=== PATIENT | male | born 1945 | race Caucasian/White ===

== ENCOUNTER → 2019-11-23 09:07 | Outpatient (BNVA) | payer MEDICARE, SELFPAY | PROVIDERS: Family Provider Internal Medicine; PCP Internal Medicine; Visit Provider Specialist | DX: G24.3 Spasmodic torticollis (principal); Z87.891 Personal history of nicotine dependence | CPT/HCPCS: 64616; 99212; J0585 ==

== ENCOUNTER 2019-12-29 16:07 | Emergency (ER) | payer MEDICARE, SELFPAY ==
[2019-12-29 16:08] VITALS: BMI 25.2
[2019-12-29 16:11] VITALS: BP 131/67; PULSE 70; RESP 18; TEMP 38.1; O2SAT 95
--- NOTE | 2019-12-29 16:24 | XR_ITS ---
WS: [id number] XR chest 1V portable [id number] REASON FOR EXAM: dyspnea/cough FINDINGS: The lung felix are adequately aerated without. Coronary artery stent is again seen. The heart mediastinum are normal. Normal vascularity throughout both lung felix is seen. The hilum and apices are normal. XR/XR chest 1V portable [id number] IMPRESSION: No acute findings.
--- NOTE | 2019-12-29 16:33 | ED_ITS ---
Entered by Inés Valerio, acting as scribe for Oziel Perez DO HPI - Weakness General: Chief complaint: Weakness Stated complaint: DOES NOT FEEL WELL Time Seen by Provider: 12/29/19 16:20 History of Present Illness: HPI Narrative: 74yo male presents to the ER saying he just feels bad . He has pain from arthritis but has no real complaints at this time other than he just does not feel well. Denies abdominal pain denies chest pain denies difficulty breathing no difficulty with bowel or bladder. He does have chronic neck pain which seems to be a little worse. He has a low- grade fever. And a slight cough. MD Complaint: generalized weakness Onset (ago): day(s) Duration: constant Location: generalized Severity: moderate Relieving factors: none Exacerbating factors: none Associated symptoms: Denies chest pain, chills, confusion, dark stools, dysuria, easy bruising, fever(s), headache(s), nausea, syncope or vomiting Review of Systems Const: Denies: fever or chills Eyes: Denies: change in vision or blurry vision ENMT: Denies: throat pain, oral sores/lesions, dental pain, nasal discharge or nasal congestion Card: Denies: chest pain or syncope Resp: Denies: shortness of breath, productive cough, non-productive cough or wheezing GI: Denies: nausea, vomiting or black tarry stool : Denies: painful urination Musc: Denies: neck pain, back pain, extremity pain, extremity swelling, joint pain or joint swelling Skin/Breast: Denies: rash, itching or redness Neuro: Denies: headache or confusion Psych: Denies: anxiety, depression, loss of interest, visual hallucinations, auditory hallucinations, suicidal ideation or homicidal ideation Endo: Denies: excessive urination, excessive thirst, tired all the time or cold intolerance Dheeraj/Lymph: Denies: easy bruising PFSH ED PFSH: Social History (Updated 11/23/19 @ 10:30 by Cassidy Green LPN) Smoking and tobacco status: former smoker Physical Exam Const: COMMON NORMALS: no apparent distress GENERAL APPEARANCE: cooperative and comfortable ORIENTATION/CONSCIOUSNESS: Yes awake, Yes oriented to person, Yes oriented to place and Yes oriented to time HENMT: COMMON NORMALS: normocephalic, head/scalp atraumatic, hearing grossly normal bilaterally, external ears normal, EAC's normal, TM's normal bilaterally, nasal mucous membranes and turbinates normal, moist oral mucous membranes and oropharynx normal HEAD & SCALP: normocephalic and atraumatic NOSE: nasal mucous membranes and turbinates normal EXTERNAL EAR: Yes external ears normal EXTERNAL AUDITORY CANAL: EAC's normal TYMPANIC MEMBRANE: TM's normal bilaterally Eye: COMMON NORMALS: PERRL, EOMs intact bilaterally, conjunctivae normal and no scleral icterus CONJUNCTIVA: Yes conjunctivae normal PUPIL: Yes PERRL Neck/C-Spine: COMMON NORMALS: full ROM, no lymphadenopathy, supple and no JVD Lymph: LYMPHATIC: no lymphadenopathy noted and no lymphedema noted Resp: COMMON NORMALS: normal respiratory effort, no retractions, no use of accessory muscles and clear to auscultation bilaterally AUSCULTATION: clear to auscultation bilaterally Cardio: COMMON NORMALS: no JVD, regular rate, regular rhythm and no murmurs RATE: regular rate RHYTHM: regular rhythm GI: COMMON NORMALS: soft to palpation and no hepatosplenomegaly AUSCULTATION: Yes normoactive bowel sounds PALPATION: Yes soft, No tender, No guarding and Yes no hepatosplenomegaly Extremity: COMMON NORMALS: normal to inspection, normal capillary refill, no clubbing, cyanosis or edema, no calf tenderness and no pedal edema Neuro: SENSORIUM/ORIENTATION: Yes oriented to person, Yes oriented to place and Yes oriented to time Skin: COMMON NORMALS: no rashes or lesions noted GENERAL SKIN EXAM: no rashes or lesions noted Course ED course: Patient is feeling much better his pain is improved no indication for admission at this time we will go ahead and discharge him home continue pain medication prescription given Vital Signs: Vital signs: Vital Signs Temperature 100.5 F H 12/29/19 16:11 Pulse Rate 72 12/29/19 19:10 Respiratory Rate 18 12/29/19 19:10 Blood Pressure 136/74 12/29/19 19:10 Pulse Oximetry 98 12/29/19 19:10 MDM - Weakness Lab Data: Labs: Lab Results 12/29/19 12/29/19 12/29/19 Range/Units 16:50 16:50 16:54 WBC 4.3 (4.0-10.0) 10^3/ uL RBC 4.57 (4.1-5.3) 10^6/u L Hgb 14.1 (11.7-16.6) g/dL Hct 43.8 (42.0-52.0) % MCV 95.8 H (80-94) fL MCH 30.9 (28.0-34.0) pg MCHC 32.2 (30.0-36.0) g/dL RDW 13.7 (12.1-15.1) % Plt Count 203 (130-400) 10^3/c mm MPV 10.6 H (7.4-10.4) fL Neut % (Auto) 79.2 % Lymph % (Auto) 7.6 % [place] % (Auto) 11.8 % Eos % (Auto) 0.7 % Baso % (Auto) 0.2 % Neut # (Auto) 3.4 (1.8-7.7) 10^3/u L Lymph # (Auto) 0.3 L (0.8-4.8) 10^3/u L [place] # (Auto) 0.5 (0.2-0.9) 10^3/u L Eos # (Auto) 0.0 (0.0-0.8) 10^3/u L Baso # (Auto) 0.0 (0.0-0.1) 10^3/u L Nucleated RBC % (a uto) 0 % Nucleated RBCs # 0.0 /100WBC Sodium 135 L (136-145) mmol/L Potassium 4.0 (3.5-5.1) mmol/L Chloride 96 L (98-107) mmol/L Carbon Dioxide 25 (22-29) mmol/L Anion Gap 18.0 (5-19) BUN 13 (8-23) mg/dL Creatinine 0.7 (0.7-1.2) mg/dL Glucose 95 (65-115) mg/dL Calcium 10.0 (8.5-10.5) mg/dL Total Bilirubin 0.5 (0.15-1.2) mg/dL AST 21 (0-40) U/L ALT 15 (0-41) U/L Alkaline Phosphata se 61 (40-130) IU/L Total Protein 8.0 (6.6-8.7) g/dL Albumin 4.1 (3.5-5.2) g/dL Globulin 3.9 (1.3-4.6) g/dL Urine Color Yellow (Yellow) Urine Appearance Clear (CLEAR) Urine pH 5 (5-7) Ur Specific Gravit y 1.020 (1.005-1.030) Urine Protein Neg (Negative) Urine Glucose (UA) Norm (Normal) Urine Ketones 1+ H (Negative) Urine Blood Neg (Negative) Urine Nitrate Negative (Negative) Urine Bilirubin Neg (NEGATIVE) Urine Urobilinogen Norm (Negative) mg/dL Ur Leukocyte Jayla ase Negative (Negative) Influenza Type A A g (Negative) POC Influenza B Ag (Negative) 12/29/19 Range/Units 17:53 WBC (4.0-10.0) 10^3/ uL RBC (4.1-5.3) 10^6/u L Hgb (11.7-16.6) g/dL Hct (42.0-52.0) % MCV (80-94) fL MCH (28.0-34.0) pg MCHC (30.0-36.0) g/dL RDW (12.1-15.1) % Plt Count (130-400) 10^3/c mm MPV (7.4-10.4) fL Neut % (Auto) % Lymph % (Auto) % [place] % (Auto) % Eos % (Auto) % Baso % (Auto) % Neut # (Auto) (1.8-7.7) 10^3/u L Lymph # (Auto) (0.8-4.8) 10^3/u L [place] # (Auto) (0.2-0.9) 10^3/u L Eos # (Auto) (0.0-0.8) 10^3/u L Baso # (Auto) (0.0-0.1) 10^3/u L Nucleated RBC % (a uto) % Nucleated RBCs # /100WBC Sodium (136-145) mmol/L Potassium (3.5-5.1) mmol/L Chloride (98-107) mmol/L Carbon Dioxide (22-29) mmol/L Anion Gap (5-19) BUN (8-23) mg/dL Creatinine (0.7-1.2) mg/dL Glucose (65-115) mg/dL Calcium (8.5-10.5) mg/dL Total Bilirubin (0.15-1.2) mg/dL AST (0-40) U/L ALT (0-41) U/L Alkaline Phosphata se (40-130) IU/L Total Protein (6.6-8.7) g/dL Albumin (3.5-5.2) g/dL Globulin (1.3-4.6) g/dL Urine Color (Yellow) Urine Appearance (CLEAR) Urine pH (5-7) Ur Specific Gravit y (1.005-1.030) Urine Protein (Negative) Urine Glucose (UA) (Normal) Urine Ketones (Negative) Urine Blood (Negative) Urine Nitrate (Negative) Urine Bilirubin (NEGATIVE) Urine Urobilinogen (Negative) mg/dL Ur Leukocyte Jayla ase (Negative) Influenza Type A A g Negative (Negative) POC Influenza B Ag Negative (Negative) Discharge Plan Discharge Patient Disposition: Home, Self-Care Clinical Impression: Cervical dystonia, Upper respiratory infection, viral Condition: Stable Prescriptions: New [place] 5-325 mg tablet 1 tab PO Q6H PRN (Reason: pain) Qty: 15 RF: 0 Zofran 4 mg tablet 4 mg PO Q6H PRN (Reason: nausea and vomiting) Qty: 10 RF: 0 No Action atorvastatin 40 mg tablet 40 mg PO .HS RF: 0 levothyroxine [Synthroid] 88 mcg tablet 88 mcg PO DAILY RF: 0 metoprolol succinate 25 mg capsule,sprinkle,ER 24hr 25 mg PO DAILY RF: 0 Discharge Orders: Discharge Order (Routine); Ordered 12/29/19 Ordered By: Oziel Perez Referrals: Avril Bonilla MD [Primary Care Provider] - Discharge Diet: Usual diet Discharge Activity: Increase activity as tolerated Activity Restrictions/Additional Instructions: Pain and nausea medications as needed. If fever worsens or changes return to the emergency room. All of your labs and chest x-ray done here in the emergency room tonight were normal Discharge Date/Time: 12/29/19 19:13 Coding Level of Care Code ED Orbitread Operator for Chg Fwd Exam Comprehensive The documentation recorded by the Teodoro crawford Bailey Leadawn, accurately reflects the service I personally performed and the decisions made by Ana díaz Curtis L, DO Dec 29, 2019 16:07
[2019-12-29] MEDS: sodium chloride 0.9% 500 ML 999 ML IV (17:01)
[2019-12-29] MEDS: ondansetron 2 mg/ML SDV 2 mL 4 MG IVP (17:02)
[2019-12-29 17:16] LABS: Basophils % 0.2 %; Eosinophils % 0.7 %; Hematocrit 43.8 % (42.0-52.0); Hemoglobin 14.1 g/dL (11.7-16.6); Lymphocytes # 0.3 10^3/uL (0.8-4.8); Lymphocytes % 7.6 %; Mean Corpuscular HGB Conc 32.2 g/dL (30.0-36.0); Mean Corpuscular Hemoglobin 30.9 pg (28.0-34.0); Mean Corpuscular Volume 95.8 fL (80-94); Mean Platelet Volume 10.6 fL (7.4-10.4); Monocytes # 0.5 10^3/uL (0.2-0.9); Monocytes % 11.8 %; Neutrophils # 3.4 10^3/uL (1.8-7.7); Neutrophils % 79.2 %; Nucleated Red Blood Cells % 0 %; Platelet Count 203 10^3/cmm (130-400); Red Blood Count 4.57 10^6/uL (4.1-5.3); Red Cell Distribution Width 13.7 % (12.1-15.1); White Blood Count 4.3 10^3/uL (4.0-10.0)
[2019-12-29 17:19] LABS: Add Urine Microscopic? NO
[2019-12-29 17:23] LABS: Glucose Urine UA Norm (Normal); Protein Urine Neg (Negative); Urine Appearance Clear (CLEAR); Urine Color Yellow (Yellow); pH Urine 5 (5-7)
[2019-12-29 17:24] LABS: Bilirubin Urine Neg (NEGATIVE); Blood Urine Neg (Negative); Ketones Urine 1+ (Negative); Leukocyte Esterase Urine Negative (Negative); Nitrate Urine Negative (Negative); Urobilinogen Urine Norm (Negative)
[2019-12-29 17:35] LABS: Alanine Aminotransferase 15 U/L (0-41); Albumin Level 4.1 g/dL (3.5-5.2); Alkaline Phosphatase 61 IU/L (40-130); Aspartate Amino Transferase 21 U/L (0-40); Blood Urea Nitrogen 13 mg/dL (8-23); Carbon Dioxide 25 mmol/L (22-29); Chloride 96 mmol/L (98-107); Creatinine Clr Calc Pharmacy 75.1382; Globulin 3.9 g/dL (1.3-4.6); Glucose 95 mg/dL (65-115); Sodium 135 mmol/L (136-145); Total Bilirubin 0.5 mg/dL (0.15-1.2)
[2019-12-29 18:34] LABS: Influenza A by IFA Negative (Negative); Influenza B by IFA Negative (Negative)
[2019-12-29 19:10] VITALS: BP 136/74; PULSE 72; RESP 18; O2SAT 98
== END 2019-12-29 19:13 | disposition home or self-care (01) ==
PROVIDERS: Emergency Provider Family Medicine; Family Provider Internal Medicine; PCP Internal Medicine
DX: J06.9 Acute upper respiratory infection, unspecified (principal); G24.3 Spasmodic torticollis; Z87.891 Personal history of nicotine dependence
CPT/HCPCS: 71045; 80053; 81003; 85025; 87804; 96374; 96375; 99282; 99283; A9270; J2405; J7040

== ENCOUNTER 2020-01-08 11:07 | Outpatient (CLI) | payer MEDICARE, SELFPAY ==
--- NOTE | 2020-01-08 11:18 | XR_ITS ---
WS: [id number] XR chest 2V* [id number] REASON FOR EXAM: COUGH/INFLUENZA FINDINGS: Comparison made to December 29, 2019 The heart is not enlarged. The lung felix are again seen well-aerated with no infiltrates, pneumonia, pleural effusion, or mass effect. The hilum and apices are normal. XR/XR chest 2V* [id number] IMPRESSION: No acute cardiopulmonary changes.
--- NOTE | 2020-01-08 11:18 | XR_ITS ---
WS: [id number] XR hand RT min 3V* [id number] REASON FOR EXAM: PAIN IN R HAND FINDINGS: Degenerative arthritis of the distal interphalangeal joints. A cyst in the scaphoid is seen. No fractures or other dyscrasias. XR/XR hand RT min 3V* [id number] IMPRESSION: Degenerative arthritis distal interphalangeal joints.
== END 2020-01-08 11:08 | disposition home or self-care (01) ==
LOC: RAD 11:14
PROVIDERS: Family Provider Internal Medicine; PCP Internal Medicine; Visit Provider Internal Medicine
DX: J11.1 Influenza due to unidentified influenza virus with other respiratory manifestations (principal); R05 Cough; M79.641 Pain in right hand; M19.041 Primary osteoarthritis, right hand
CPT/HCPCS: 71046; 73130

== ENCOUNTER → 2020-02-29 08:39 | Outpatient (BNVA) | payer MEDICARE, SELFPAY | PROVIDERS: Family Provider Internal Medicine; PCP Internal Medicine; Visit Provider Specialist | DX: G24.3 Spasmodic torticollis (principal); Z79.891 Long term (current) use of opiate analgesic | CPT/HCPCS: 64616; 64642; J0585 ==

== ENCOUNTER 2020-04-08 20:00 | Outpatient (CLI) | payer MEDICARE, SELFPAY | END 2020-04-08 20:01 | disposition home or self-care (01) | LOC: SLEEP 04-09 08:39 | PROVIDERS: Family Provider Internal Medicine; PCP Internal Medicine; Visit Provider Internal Medicine | DX: G47.33 Obstructive sleep apnea (adult) (pediatric) (principal) | CPT/HCPCS: 95811 ==

== ENCOUNTER → 2020-05-23 08:36 | Outpatient (BNVA) | payer MEDICARE, SELFPAY | PROVIDERS: Family Provider Internal Medicine; PCP Internal Medicine; Visit Provider Specialist | DX: G24.3 Spasmodic torticollis (principal) | CPT/HCPCS: 64616; 99212; J0585 ==

== ENCOUNTER → 2021-06-18 10:45 | Outpatient (BNVA) | payer MEDICARE, SELFPAY | PROVIDERS: Family Provider Internal Medicine; PCP Internal Medicine; Visit Provider Specialist | DX: M77.8 Other enthesopathies, not elsewhere classified (principal) | CPT/HCPCS: 73080 ==

== ENCOUNTER → 2021-07-16 10:54 | Outpatient (BNVA) | payer MEDICARE, SELFPAY | PROVIDERS: Family Provider Internal Medicine; PCP Internal Medicine; Visit Provider Specialist | DX: M25.551 Pain in right hip (principal); Z96.643 Presence of artificial hip joint, bilateral | CPT/HCPCS: 73502 ==

== ENCOUNTER → 2021-10-13 10:42 | Outpatient (BNVA) | payer MEDICARE, SELFPAY | PROVIDERS: Family Provider Internal Medicine; PCP Internal Medicine; Visit Provider Specialist | DX: Z47.1 Aftercare following joint replacement surgery (principal); Z96.643 Presence of artificial hip joint, bilateral | CPT/HCPCS: 73502 ==

== ENCOUNTER 2021-10-22 04:48 | Outpatient (RCR) | payer MEDICARE, SELFPAY | END 2021-11-07 23:59 | disposition home or self-care (01) | LOC: SPT 04:48 | PROVIDERS: PCP Internal Medicine; Referring Provider Specialist; Visit Provider Specialist | DX: Z96.642 Presence of left artificial hip joint (principal); M70.62 Trochanteric bursitis, left hip; Y93.9 Activity, unspecified | CPT/HCPCS: 97110; 97161 ==

== ENCOUNTER 2021-11-08 06:00 | Outpatient (RCR) | payer MEDICARE, SELFPAY | END 2021-12-08 23:59 | disposition home or self-care (01) | LOC: SPT 06:00 | PROVIDERS: PCP Internal Medicine; Referring Provider Specialist; Visit Provider Specialist | DX: Z47.1 Aftercare following joint replacement surgery (principal); Z96.642 Presence of left artificial hip joint | CPT/HCPCS: 97110 ==

== ENCOUNTER 2021-12-09 06:00 | Outpatient (RCR) | payer MEDICARE, SELFPAY | END 2021-12-26 23:59 | disposition home or self-care (01) | LOC: SPT 06:00 | PROVIDERS: PCP Internal Medicine; Referring Provider Specialist; Visit Provider Specialist | DX: Z47.1 Aftercare following joint replacement surgery (principal); Z96.642 Presence of left artificial hip joint | CPT/HCPCS: 97110 ==

== ENCOUNTER 2022-05-26 12:10 | Outpatient (CLI) | payer MEDICARE, SELFPAY ==
--- NOTE | 2022-05-26 12:28 | XR_ITS ---
WS: [id number] XR chest 2V* [id number] REASON FOR EXAM: CHRONIC COUGH FINDINGS: Moderate tortuosity of the thoracic aorta. The heart appears mildly enlarged which is a new finding c ompared to 01/08/2020. Partially calcified coronary artery stents are noted. There is calcified granulomatous disease bilaterally. No acute pulmonary parenchymal or pleural abnormality is identified. Moderately severe degenerative spondylosis and mild concave compression deformities are seen in the m id and lower thoracic spine. XR/XR chest 2V* [id number] IMPRESSION: Interval cardiac enlargement compared to the examination of 01/08/2020. No acute chest abnormality.
== END 2022-05-26 12:11 | disposition home or self-care (01) ==
PROVIDERS: PCP Internal Medicine; Visit Provider Internal Medicine
DX: I51.7 Cardiomegaly (principal); R05.3 Chronic cough
CPT/HCPCS: 71046

== ENCOUNTER → 2022-08-26 14:56 | Outpatient (BNVA) | payer MEDICARE, SELFPAY | PROVIDERS: PCP Internal Medicine; Visit Provider Nurse Practitioner Family | DX: M79.604 Pain in right leg (principal); M79.605 Pain in left leg; Z96.643 Presence of artificial hip joint, bilateral | CPT/HCPCS: 99214 ==

== ENCOUNTER 2023-09-22 11:18 | Emergency (ER) | payer OTHER, SELFPAY ==
[2023-09-22 11:27] VITALS: BP 177/77; PULSE 86; RESP 16; TEMP 36.5; O2SAT 97; BMI 26.9
[2023-09-22 11:35] VITALS: O2SAT 98
[2023-09-22 11:39] VITALS: BP 173/73; PULSE 88; RESP 18; O2SAT 96
--- NOTE | 2023-09-22 11:44 | CT_ITS ---
WS: [id number] CT pelvis TECHNIQUE: Noncontrast CT of the pelvis with coronal and sagittal reformatted images. CLINICAL INFORMATION: retained bergman catheter COMPARISON: None. DLP: 399.[address] scans at [facility] use at least one of these dose optimization techniques: automated e xposure control; mA and/or kV adjustment per patient size (includes targeted exams where dose is matc hed to clinical indication); or iterative reconstruction. FINDINGS: Bilateral THAs degrade images in the pelvis. Bergman catheter with tip in the bladder. Distal tip withi n the distal penile urethra approximately 2.1 cm from the meatus. No visualized air within the bladder. Bladder is relatively decompressed. No visualized hematoma. Sigmoid diverticulosis. Vascular calcification. IMPRESSION: 1. Bergman catheter with tip in the bladder and distal tip in the penile urethra approximately 2.1 cm from the meatus. 2. No visualized bladder or urethral hematoma. No air within the bladder. Bladder is decompressed. 3. Bilateral THAs. 4. Sigmoid diverticulosis. Notified Oziel Perez DO at 09/22/2023 12:49 PM.
--- NOTE | 2023-09-22 12:00 | PC.PHAR ---
[facility]ED [facility] 12 NOON 09/22/23
[2023-09-22 12:12] LABS: Basophils % 0.5 %; Eosinophils # 0.2 10^3/uL (0.0-0.8); Eosinophils % 2.9 %; Hematocrit 42.1 % (37-53); Lymphocytes # 0.9 10^3/uL (0.8-4.8); Lymphocytes % 14.2 %; Mean Corpuscular HGB Conc 32.3 g/dL (30-55); Mean Corpuscular Hemoglobin 32.7 pg (27-33); Mean Corpuscular Volume 101.2 fl (82-101); Monocytes # 0.5 10^3/uL (0.2-0.9); Monocytes % 7.3 %; Neutrophils # 4.84 10^3/uL (1.8-7.7); Neutrophils % 74.6 %; Nucleated Red Blood Cells % 0 %; Platelet Count 231 10^3/cmm (157-399); Red Blood Count 4.16 10^6/uL (3.85-5.65); Red Cell Distribution Width 13.3 % (12.1-15.1); White Blood Count 6.48 10^3/uL (3.29-11.43)
--- NOTE | 2023-09-22 12:20 | ED_ITS ---
HPI - Male Genitourinary General: Chief complaint: Urogenital-Male Stated complaint: cut tube off urine bag Time Seen by Provider: 09/22/23 11:44 Source: patient Mode of arrival: ambulatory History of Present Illness: 78-year-old male presents emergency room with Dumont catheter problem. Evidently couple weeks ago he had Dumont catheter placed because urinary retention he had some discomfort with it and it was leaking, so he tried to remove it he essentially pulled a on it till he got to a certain point and then cut the tube the remainder of the tube retracted inside of his bladder. He has still been able to urinate but has had some difficulty. He denies any fever sweats or chills. No hematuria. He sees urologist in [place]. Associated symptoms: Deny discharge, dysuria, fevers/chills, hematuria, nausea, rash, swelling, urinary incontinence, urinary retention, mass or vomiting Review of Systems Const: Denies: fever(s) or chills Card: Denies: chest pain Resp: Denies: dyspnea GI: Denies: nausea or vomiting : Denies: dysuria, urinary frequency, urinary urgency, urinary incontinence or hematuria Musc: Denies: neck pain or back pain Skin/Breast: Denies: rash PFSH ED PFSH: Medical History (Updated 09/22/23 @ 13:35 by Oziel Perez DO) Atrioventricular block, first degree CAD (coronary artery disease) COPD (chronic obstructive pulmonary disease) Dyslipidemia H/O alcohol abuse Hypertension Old myocardial infarction Sleep apnea Family History Brother Stroke Cancer Sister Cancer Social History Alcohol intake: former Substance/Drug Use: never Marital status: service: Yes branch: [employer] Current occupational status: retired Physical Exam Const: COMMON NORMALS: no acute distress GENERAL APPEARANCE: cooperative and comfortable ORIENTATION/CONSCIOUSNESS: Yes awake, Yes oriented to person, Yes oriented to place and Yes oriented to time HENMT: COMMON NORMALS: normocephalic, atraumatic and hearing grossly normal bilaterally HEAD & SCALP: normocephalic and atraumatic Resp: COMMON NORMALS: normal respiratory effort, No retractions, No use of accessory muscles and clear to auscultation bilaterally AUSCULTATION: clear to auscultation bilaterally Cardio: COMMON NORMALS: regular rate, regular rhythm and No murmurs present (Cardio) RATE: regular rate RHYTHM: regular rhythm GI: COMMON NORMALS: Soft to palpation and No hepatosplenomegaly present AUSCULTATION: Yes normoactive bowel sounds PALPATION: Yes Soft to palpation, No Tenderness to palpation present (GI), No Guarding due to palpation present (GI) and Yes No hepatosplenomegaly present Extremity: COMMON NORMALS: normal to inspection, capillary refill normal, no clubbing, cyanosis or edema, no calf tenderness and no pedal edema Neuro: SENSORIUM/ORIENTATION: Yes oriented to person, Yes oriented to place and Yes oriented to time Skin: COMMON NORMALS: no rashes or lesions noted GENERAL SKIN EXAM: no rashes or lesions noted Course Vital Signs: Vital signs: Vital Signs Temperature 97.7 F 09/22/23 11:27 Pulse Rate 77 09/22/23 12:47 Respiratory Rate 16 09/22/23 12:47 Blood Pressure 130/58 09/22/23 12:47 Pulse Oximetry 95 09/22/23 12:47 Oxygen Delivery Me thod Room Air 09/22/23 11:39 MDM - Male Medical Decision Making Dumont catheter was cut and retracted back into the penile urethra I cannot palpate it within the penis however on the CT it is in the proximal portion of the penile urethra and is still draining the bladder his kidney function is good his white count is normal. We were not able to get a urine and we did not do a heart catheterization to collect 1. Discussed with Dr. Hughes my concern was if we did a catheter we may dislodge the room in the Dumont catheter to within the bladder and may make it more difficult to remove the catheter under procedure since is already threaded into the urethra and the portion of the catheter retaining fluid in the bulb is also been cut the hope is by grasping the cut portion within the urethra it can be pulled directly out. Dr. Hughes concurred he did ask us to start the patient on prophylactic antibiotics Bactrim DS twice daily for 5 days. Patient's films were shared with the patient hardcopy and uploaded for Dr. Hughes to review at [place]. Patient to return if he has further problems or development of fever Dr. Hughes's office will contact them to make arrangements for an outpatient extraction of the remnant of Dumont catheter Medical Records I reviewed the patient's medical records. Lab Data I reviewed the patient's lab results. 09/22/23 11:54 09/22/23 11:54 Laboratory Results WBC 6.48 10^3/uL (3.29-11.43) 09/22/23 11:54 RBC 4.16 10^6/uL (3.85-5.65) 09/22/23 11:54 Hgb 13.60 g/dL (11.27-16.99) 09/22/23 11:54 Hct 42.1 % (37-53) 09/22/23 11:54 MCV 101.2 fl (82-101) H 09/22/23 11:54 MCH 32.7 pg (27-33) 09/22/23 11:54 MCHC 32.3 g/dL (30-55) 09/22/23 11:54 RDW 13.3 % (12.1-15.1) 09/22/23 11:54 Plt Count 231 10^3/cmm (157-399) 09/22/23 11:54 MPV 10.0 fL (7.4-10.4) 09/22/23 11:54 Neut % (Auto) 74.6 % 09/22/23 11:54 Lymph % (Auto) 14.2 % 09/22/23 11:54 [place] % (Auto) 7.3 % 09/22/23 11:54 Eos % (Auto) 2.9 % 09/22/23 11:54 Baso % (Auto) 0.5 % 09/22/23 11:54 Neut # (Auto) 4.84 10^3/uL (1.8-7.7) 09/22/23 11:54 Lymph # (Auto) 0.9 10^3/uL (0.8-4.8) 09/22/23 11:54 [place] # (Auto) 0.5 10^3/uL (0.2-0.9) 09/22/23 11:54 Eos # (Auto) 0.2 10^3/uL (0.0-0.8) 09/22/23 11:54 Baso # (Auto) 0.0 10^3/uL (0.0-0.1) 09/22/23 11:54 Nucleated RBC % (auto) 0 % 09/22/23 11:54 Nucleated RBCs # 0.0 /100WBC 09/22/23 11:54 Sodium 141 mmol/L (136-145) 09/22/23 11:54 Potassium 4.7 mmol/L (3.5-5.1) 09/22/23 11:54 Chloride 106 mmol/L (98-107) 09/22/23 11:54 Carbon Dioxide 25 mmol/L (22-29) 09/22/23 11:54 Anion Gap 14.7 (5-19) 09/22/23 11:54 BUN 30 mg/dL (8-23) H 09/22/23 11:54 Creatinine 0.6 mg/dL (0.7-1.2) L 09/22/23 11:54 GFR Calculation Not Reportable 09/22/23 11:54 Glucose 107 mg/dL (65-115) 09/22/23 11:54 Calculated Osmolality 299 mOsm/kg (285-295) H 09/22/23 11:54 Calcium 9.3 mg/dL (8.5-10.5) 09/22/23 11:54 All radiology interpretation(s) finalized by discharge Discharge Plan Discharge Patient Disposition: Home Clinical Impression: Complication of Dumont catheter Condition: Stable Prescriptions: New Bactrim DS 800-160 mg tablet 1 tab PO BID 7 Days Qty: 14 0RF No Action meloxicam 15 mg tablet 15 mg PO DAILY levothyroxine [Synthroid] 88 mcg tablet 88 mcg PO DAILY metoprolol succinate 50 mg Tablet Extended Release 24 Hr 25 mg PO DAILY tamsulosin 0.4 mg Capsule 0.4 mg PO DAILY pantoprazole 40 mg Tablet,Delayed Release (Dr/Ec) 40 mg PO DAILY brimonidine 0.2 % Drops 1 drp OPHTHALMIC (EYE) DAILY finasteride 5 mg Tablet 5 mg PO DAILY Discharge Orders: Discharge ED (Routine); Ordered 09/22/23 Ordered By: Oziel Perez Referrals: Avril Bonilla MD [Primary Care Provider] - Discharge Diet: Usual diet Discharge Activity: Increase activity as tolerated Patient Instructions: Opioid Safety, Pain Management Activity Restrictions/Additional Instructions: Thank you for choosing [facility] for your healthcare needs today. Please realize this is an emergency room and that we are providing you with a medical screening exam and this may not be complete and all inclusive of all the testing and or work up that you may need to determine your ailment or severity of your illness. It is very important that you follow up as instructed or that you return to the Emergency Department should you have concerns or if your condition changes or worsens in any way. You were seen today for retained Dumont catheter. I discussed your case with Dr. Hughes at [place] the urologist that you see. At this point since the catheter is still allowing the bladder to drain and is positioned reasonably to continue to do so there is no emergency. Your renal function is normal. We do recommend that you start prophylactic antibiotics. We shared the imaging done today with Dr. Hughes and we are also giving you a hard copy to take with you to give him in case or complications of the image sharing. Recommend he contact Dr. Hughes's office he will make arrangements for you to have a cystoscopy (a procedure to remove the remnant of Dumont catheter in the bladder.) Coding Level of Care Code ED Progressive Care Unit Registered Nurse for Angela Diallo
[2023-09-22 12:31] LABS: Anion Gap 14.7 (5-19); Blood Urea Nitrogen 30 mg/dL (8-23); Calcium 9.3 mg/dL (8.5-10.5); Carbon Dioxide 25 mmol/L (22-29); Chloride 106 mmol/L (98-107); Glucose 107 mg/dL (65-115); Osmolality Calculated 299 mOsm/kg (285-295); Potassium 4.7 mmol/L (3.5-5.1); Sodium 141 mmol/L (136-145)
[2023-09-22 12:36] LABS: Creatinine Clr Calc Pharmacy 72.6281
[2023-09-22 12:47] VITALS: BP 130/58; PULSE 77; RESP 16; O2SAT 95
[2023-09-22 14:29] VITALS: BP 133/79; PULSE 77; RESP 16; O2SAT 96
[2023-09-22 14:30] VITALS: BP 133/79; PULSE 77; RESP 16; O2SAT 96
== END 2023-09-22 14:31 | disposition home or self-care (01) ==
PROVIDERS: Emergency Provider Family Medicine; PCP Internal Medicine
DX: T83.098A Other mechanical complication of other urinary catheter, initial encounter (principal); Y73.1 Therapeutic (nonsurgical) and rehabilitative gastroenterology and urology devices associated with adverse incidents; I25.10 Atherosclerotic heart disease of native coronary artery without angina pectoris; J44.9 Chronic obstructive pulmonary disease, unspecified; E78.5 Hyperlipidemia, unspecified; I10 Essential (primary) hypertension; I25.2 Old myocardial infarction
CPT/HCPCS: 36415; 72192; 80048; 85025; 87040; 99284